=== PATIENT | female | born 1980 | race Two or more races ===

== ENCOUNTER 2025-01-11 19:27 | Emergency (ER) | payer OTHER, SELFPAY ==
[2025-01-11 19:57] VITALS: BP 148/93; PULSE 74; RESP 18; TEMP 37.1; O2SAT 97
--- NOTE | 2025-01-11 20:09 | XR_ITS ---
Examination: CT abdomen and pelvis without contrast. Coronal 3-D reconstructions. Sagittal 2-D reconstructions. Date and time of exam:January 11, 2025 at 2055 hours INDICATIONS: Right-sided abdominal pain radiating to the back with nausea beginning 2 weeks ago CTDI: vol (mGy): 16 DLP: (mGycm): 923 Technique: Axial images of the abdomen have been obtained, 3 mm slice thickness Intravenous contrast material has not been administered. Low dose protocols were performed. One or more of the following dose reduction techniques were used; automated exposure control, adjustment of the mA and/or KV according to patient size, use of iterative reconstruction technique. Findings: No focal liver or splenic lesions No gallstones No pancreatic mass No renal or ureteral calculi, no hydronephrosis Aorta normal size Normal appendix 12 mm fat-containing umbilical hernia No bowel obstruction No diverticulitis Contracted urinary bladder Moderate degenerative disc disease L5-S1 IMPRESSION: No renal or ureteral calculi, no hydronephrosis Normal appendix No bladder mass or bladder calculi Moderate degenerative disc disease L5-S1
--- NOTE | 2025-01-11 20:10 | EKG_ITS ---
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
--- NOTE | 2025-01-11 20:10 | XR_ITS ---
Examination: PA lateral chest 2 views TECHNIQUE: Upright PA and lateral chest 2 views Exam time: 2024 at 2002 hours Comparison June 15, 2024 INDICATIONS: Chest pain. FINDINGS: Minimal opacity in the lingular segment on the lateral view Right lung clear Normal heart size IMPRESSION: Suspicious for minimal pneumonia lingular segment left upper lobe
--- NOTE | 2025-01-11 20:11 | EDNOTE_ITS ---
ED Abdominal Pain RME/HPI General Chief Complaint: Abdominal Pain Stated complaint: RIGHT ABD PAIN RADIATING TO BACK Time seen by provider: 01/11/25 19:29 Arrival date/time: 01/11/25 19:27 Limitations: no limitations RME / HPI RME / HPI narrative: 44-year-old patient with past medical history of hypertension and fibromyalgia presents for evaluation of X 2 weeks of right upper quadrant pain with radiation to her back. She describes it as aching that is worse with eating. She reports new onset of pain radiating to her bilateral low back. Denies fever, chills, chest pain, shortness of breath, cough, diarrhea, hemoptysis, hematochezia, hematemesis. She notes right knee pain following a fall from standing several days ago. Denies known history of kidney stones. MD complaint: abdominal pain Location: RUQ Quality: aching Radiation: bilateral flank Exacerbating factors: eating Related Data Home Medications ?Medication ?Instructions ?Recorded ?Confirmed losartan 50 mg tablet 50 mg PO BID High Blood Pres sure 07/28/21 07/28/21 Previous Rx's ?Medication ?Instructions ?Recorded albuterol sulfate 90 mcg/actuation 1 inh inhalation QI D PRN shortness 07/31/21 aerosol inhaler (Proventil HFA) of breath or wheezing #6.7 grams fluticasone propionate 115 2 puff inhalation BID #8 gr ams 07/31/21 mcg-salmeterol 21 mcg/actuation HFA inhaler (Advair HFA) metformin 1,000 mg tablet 1,000 mg PO BID #60 tabs 09/10 ferrous sulfate 325 mg (65 mg 325 mg PO TID #90 tabs 1 11/06/22 iron) tablet,delayed release gabapentin 100 mg capsule 100 mg PO TID #42 caps 09/06 (Neurontin) meclizine 25 mg chewable tablet 25 mg PO TID nausea #1 4 tabs 09/06/23 ondansetron 4 mg disintegrating 4 mg PO Q8H PRN nausea and 01/11/25 tablet vomiting #14 tabs Allergies Allergy/AdvReac Type Severity Reaction Status Date / Time No Known Allergies Allergy Verified 01/11/25 19:28 Review of Systems Constitutional Constitutional: Denies excessive sweating, Denies fever(s), Denies night sweats and Denies weakness Cardiovascular Cardiovascular: Denies chest pain, Denies dyspnea and Denies palpitations Respiratory Respiratory: Denies cough, Denies dyspnea and Denies hemoptysis Gastrointestinal Gastrointestinal: Reports abdominal pain, Denies bloating, Denies change in bowel habits, Denies change in stool character, Denies constipation, Reports dyspepsia, Denies hematemesis, Denies hematochezia and Denies vomiting Genitourinary Genitourinary: Denies dysuria and Denies hematuria Musculoskeletal Musculoskeletal: Reports back pain, Denies numbness, Denies stiffness and Denies tingling Integumentary/Breasts Skin/Breast: Denies rash Neurologic Neurologic: Denies numbness, Denies tingling and Denies weakness Endocrine Endocrine: Denies excessive sweating and Denies palpitations Past Medical History Past Medical History CARDIAC: Negative Congestive Heart Failure RESPIRATORY: Negative Chronic Obstructive Pulmonary Disease (COPD) GENITOURINARY: Negative Renal Disease ENDOCRINE: Negative Diabetes Mellitus Type 1 or Diabetes Mellitus Type 2 Family History FAMILY HISTORY: Positive Family Respiratory Disorders and Family Gastrointestinal Problems; Negative Family Cardiac Disorders Social History SMOKING STATUS: Never smoker ED Exam General Limitations: Present no limitations General appearance: Present alert and in no apparent distress Head Head exam: Present atraumatic and normocephalic Eye Eye exam: Present normal appearance and EOMI ENT ENT exam: Present normal exam and normal oropharynx Neck Neck exam: Present normal inspection and full ROM Chest Chest inspection: Present normal inspection and symmetric chest wall rise; Absent tenderness Respiratory Respiratory exam: Present normal lung sounds bilaterally; Absent respiratory distress or wheezes Cardiovascular Cardiovascular exam: Present regular rate, normal heart sounds and +S1 Abdominal Exam Abdominal exam: Present soft and normal bowel sounds; Absent distention, tenderness, guarding, rebound or rigidity Bimanual exam: Present left adnexal tenderness Extremities Exam Extremities exam: Present normal inspection and full ROM Back Exam Back exam: Present normal inspection; Absent CVA tenderness (R) or CVA tenderness (L) Neurological Exam Neurological exam: Present alert and normal gait Psychiatric Psychiatric exam: Present normal affect Skin Skin exam: Present warm, dry and normal color Course Quality Measures none Orders Category Date Time Status EKG (ED ONLY) *Do not use* NOW Care 01/11/25 20:[address] abdomen pelvis wo con Stat Exams 01/11/25 20:09 Completed EKG (ED Only) Stat Exams 01/11/25 20:10 Draft XR chest 2V Stat Exams 01/11/25 20:10 Completed XR knee LT 3V Stat Exams 01/11/25 21:05 Completed CBC Stat Lab 01/11/25 20:26 Completed Comprehensive Metabolic Panel Stat Lab 01/11/25 20:26 Completed Drug Screen,Urine Stat Lab 01/11/25 21:17 Completed LDH (Lactate Dehydrogenase) Stat Lab 01/11/25 20:26 Completed Lipase Stat Lab 01/11/25 20:26 Completed Magnesium Stat Lab 01/11/25 20:26 Completed Partial Thromboplastin Time Stat Lab 01/11/25 20:26 Completed Prothrombin Time with INR Stat Lab 01/11/25 20:26 Completed Troponin I Stat Lab 01/11/25 20:26 Completed Urinalysis Stat Lab 01/11/25 21:17 Completed Famotidine [Pepcid] Med 01/11/25 20:09 Discontinued 40 mg PO X1 ONE Lidocaine 2% Viscous [Xylocaine 2% Viscous] Med 01/11/25 20:09 Discontinued 15 ml PO X1 ONE mg Hyd/Al Hyd/Alba Susp [Maalox Susp] Med 01/11/25 20:09 Discontinued 30 ml PO X1 ONE Vital Signs Vital signs: Vital Signs Temperature 98.8 F 01/11/25 19:57 Pulse Rate 74 01/11/25 19:57 Respiratory Rate 18 01/11/25 19:57 Blood Pressure 148/93 H 01/11/25 19:57 Pulse Oximetry (%) 97 01/11/25 19:57 Oxygen Delivery Method Room Air 01/11/25 19:57 Pulse ox 97% on room air, within normal limits. Abdominal Pain MDM MDM Narrative [facility] Narrative:: 44-year-old female presented with x 2 weeks of right upper quadrant pain that radiated to her back. Vital signs reassuring. Unremarkable physical exam. Given worsening of her symptoms CT abdomen and pelvis was obtained which was fortunately negative for acute intra-abdominal process. Labs point away from acute pancreatitis and sepsis. UA was significant for crystals in her urine but no sign of infection. Possibly abdominal pain related to GERD as her symptoms improved in department following GI cocktail. Ultimately patient was discharged with plan to follow-up with primary care within the week for reevaluation and further assessment. Patient stable at time of discharge. Patient data External records reviewed:: [facility] previous records Clinical information provided by:: patient Social determinants that could affect healthcare access:: none Patient has the following chronic illnesses:: None reported. How is presenting disease/condition affected by chronic disease/condition?: no chronic disease Evaluation data The following diagnostics were reviewed and interpreted by me:: lab results, radiology exam(s) and EKG tracing(s) Lab and/or radiology exams considered but not ordered:: Considered not ordered. Interpretation Summary: MPRESSION: No renal or ureteral calculi, no hydronephrosis Normal appendix No bladder mass or bladder calculi Moderate degenerative disc disease L5-S1 CBC significant for mild anemia not requiring transfusion at this time. No evidence of endorgan damage or failure. Crystals seen in urine but no sign of infection. Medications / Prescriptions Medications or Prescriptions considered but not ordered:: Rx given. Medication administrations:: Medication Administration History Discontinued Medications Al Hydrox/Mg Hydrox/Simethicone (Mg Hyd/Al Hyd/Alba (Maalox Reg) Susp 30 Ml Udc) 30 ml PO X1 ONE Stop: 01/11/25 20:10 Last Admin: 01/11/25 20:15 Dose: 30 ml Documented By: AC Famotidine (Famotidine 20 Mg Tablet) 40 mg PO X1 ONE Stop: 01/11/25 20:10 Last Admin: 01/11/25 20:15 Dose: 40 mg Documented By: AC Lidocaine HCl (Lidocaine Viscous 2% 15 Ml Udc) 15 ml PO X1 ONE Stop: 01/11/25 20:10 Last Admin: 01/11/25 20:15 Dose: 15 ml Documented By: AC Rx given. Consultations Consultation(s) initiated? (list below): No Diagnosis Differential diagnosis abdominal pain: abdominal pain, calculus of kidney, gastroenteritis, pancreatitis and other (Left knee dislocation, left knee strain, GERD.) Most likely diagnosis given after review of the tests above:: Abdominal pain, urinary crystals, bilateral flank pain. Admission Indicated Admission indicated?: not indicated Admission Request Was there a request for admission?: No Disposition Plan Disposition Plan: Discharge Discharge Attestation Discharge Attestation: The patient and all family members were given an opportunity to ask questions and understood the discharge instructions. Discharge instructions specifically effects, indications for sooner follow up or return to the emergency department, and the expected course of current diagnosis. Patient condition: Stable Discharge Plan Plan Patient Disposition: HOME (Self Care) Disposition Comment: stable Prescriptions/Referrals Prescriptions/Med Rec: New ondansetron 4 mg tablet,disintegrating 4 mg PO Q8H PRN (Reason: nausea and vomiting) Qty: 14 0RF No Action losartan 50 mg tablet 50 mg PO BID albuterol sulfate [Proventil HFA] 90 mcg/actuation HFA aerosol inhaler 1 inh inhalation QID PRN (Reason: shortness of breath or wheezing) Qty: 6.7 0RF Advair HFA 115-21 mcg/actuation HFA aerosol inhaler 2 puff inhalation BID Qty: 8 0RF metformin 1,000 mg tablet 1,000 mg PO BID Qty: 60 0RF meclizine 25 mg tablet,chewable 25 mg PO TID Qty: 14 0RF gabapentin [Neurontin] 100 mg capsule 100 mg PO TID Qty: 42 0RF ferrous sulfate 325 mg (65 mg iron) tablet,delayed release (DR/EC) 325 mg PO TID Qty: 90 0RF Rx Instructions: Take with 500mg Vitamin C 30 minutes before meals Referrals: No Primary/Family,Physician [Primary Care Provider] - In 1 week Problem List Clinical Impression: Acute pain of right knee, Abdominal pain, Urinary crystals, Anemia, Flank pain Patient/Caregiver Discharge Instructions Other Activity Instructions:: Take Zofran as needed for nausea. Continue to treat pain with Tylenol or Motrin as needed every 6 hours. Use Alec bandage on right knee for the next 3 days. Follow-up with primary care for further evaluation and treatment. Return to the ED if your symptoms worsen or change. Education Materials: Abdominal Pain, Anemia, ED ALEC Wrap, ED Contusion, Lower Extremity, ED Flank Pain, Uncertain Cause Print Language: Japanese Stand Alone Forms: Elizabeth Award Info., Patient Portal Info Letter PA/VISCERA WASHER Supervising Physician PA/VISCERA WASHER Supervising Physician: Dr. Gaming
[2025-01-11] MEDS: FAMOTIDINE 20 MG TABLET 40 MG PO (20:15)
[2025-01-11] MEDS: MG HYD/AL HYD/SIME (Maalox Reg) SUSP 30 ML UDC PO (20:15)
[2025-01-11] MEDS: LIDOCAINE VISCOUS 2% 15 ML UDC PO (20:15)
[2025-01-11 20:50] LABS: Basophils # (Auto) 0.1 Thou/mm3 (0.0-0.2); Basophils % (Auto) 1 % (0-2.5); Eosinophils # (Auto) 0.2 Thou/mm3 (0.0-0.5); Eosinophils % (Auto) 2 % (0-10); Hematocrit 37.6 % (36.0-46.0); Hemoglobin 11.4 g/dL (12.0-16.0); Immature Granulocytes % (Auto) 0 % (0-0); Immature Granulocytes Auto 0.02 Thou/mm3 (0.00-0.00); Lymphocytes # (Auto) 2.5 Thou/mm3 (1.0-4.8); Lymphocytes % (Auto) 37 % (10-50); Mean Corpuscular HGB Conc 30.3 g/dl (31.0-37.0); Mean Corpuscular Hemoglobin 21.8 pg (25.0-35.0); Mean Corpuscular Volume 72 fL (80-100); Monocytes # (Auto) 0.6 Thou/mm3 (0.0-0.8); Monocytes % (Auto) 8 % (0-12); Neutrophils # (Auto) 3.5 Thou/mm3 (1.8-7.7); Neutrophils % (Auto) 52 % (37-80); Nucleated Red Blood Cell % 0 /100 WBC (0); Platelet Count 358 Thou/mm3 (140-440); RDW Standard Deviation 50.4 fL (36.4-46.3); Red Blood Count 5.23 Miln/mm3 (4.00-5.20); White Blood Count 6.9 Thou/mm3 (3.6-11.0)
[2025-01-11 21:04] LABS: Partial Thromboplastin Time 28.2 Seconds (22.0-36.0); Prothrombin Time 10.9 Seconds (9.0-12.2)
--- NOTE | 2025-01-11 21:05 | XR_ITS ---
Examination: Knee, left , 3 views Technique: Knee AP, lateral, oblique 3 views Date and time of exam: January 11, 2025 at 2006 hours INDICATIONS: Patient fell last by with inferior the knee, knee pain. FINDINGS: Moderate to advanced osteoarthritis medial joint space No occult fracture or dislocation IMPRESSION: No ankle fracture or dislocation
[2025-01-11 21:13] LABS: Alanine Aminotransferase 22 U/L (10-49); Albumin, Serum 4.2 gm/dL (3.5-5.0); Albumin/Globulin Ratio 1.4 (1.2-2.2); Alkaline Phosphatase 131 U/L (46-116); Anion Gap 8 (7-16); Aspartate Amino Transferase 23 U/L (0-34); BUN/Creatinine Ratio 33 Ratio (12-20); Bilirubin,Total 0.5 mg/dL (0.3-1.2); Blood Urea Nitrogen 20 mg/dL (9-23); Calcium 9.9 mg/dL (8.3-10.6); Calcium (Corrected) 9.9 mg/dL (8.5-10.1); Carbon Dioxide 28.4 mMol/L (20.0-31.0); Chloride 106 mMol/L (98-107); Creatinine (Component) 0.6 mg/dL (0.6-1.3); Globulin 3.1 gm/dL (2.3-3.5); Glucose 103 mg/dL (74-106); Lipase 35 U/L (12-53); Osmolality,Calculated 285 (275-295); Potassium 3.8 mMol/L (3.4-5.1); Sodium 142 mMol/L (136-145); Total Protein 7.3 gm/dL (5.7-8.2); Troponin I < 0.020 ng/mL (0.0-0.045); eGFR > 60 See Note
[2025-01-11 21:49] LABS: Amphetamine/Methamp Scrn,U Negative (Negative); Barbiturate Screen,Urine Negative (Negative); Benzodiazepines Screen,Urine Negative (Negative); Benzoylecgonine Screen, Ur Negative (Negative); Fentanyl Screen,Urine Negative (Negative); Opiate Screen,Urine Negative (Negative); THC Screen,Urine Negative (Negative)
[2025-01-11 22:11] LABS: Bilirubin,Urine Negative (Negative); Blood,Urine Negative (Negative); Clarity,Urine Turbid (Clear/Hazy); Collection Type, Urine Clean Catch; Color,Urine Yellow (Lt Yel-Yel); Glucose, Urine Negative (Negative); Hyaline Casts,Urine 1 /hpf (0-1); Ketones,Urine Negative (Negative); Leukocyte Esterase,Urine Positive (Negative); Nitrite,Urine Negative (Negative); PH,Urine 5.5 (5.0-7.0); Protein,Urine Trace (Neg - Trace); RBC,Urine 1 /hpf (0-3); Squamous Epithelial Cell,Urine 10 /hpf (0-5); Uric Acid Crystals,Urine 4+; WBC,Urine 1 /hpf (0-5)
[2025-01-11 23:11] LABS: LDH (Lactate Dehydrogenase) 191 U/L (120-246); Magnesium 2.3 mg/dL (1.6-2.6)
== END 2025-01-11 23:35 | disposition home or self-care (01) ==
PROVIDERS: Physician Assistant; Emergency Provider Emergency Medicine
DX: M25.561 Pain in right knee (principal); R10.11 Right upper quadrant pain; D64.9 Anemia, unspecified; R82.998 Other abnormal findings in urine; M79.7 Fibromyalgia; I10 Essential (primary) hypertension
CPT/HCPCS: 36415; 71046; 73562; 74176; 80053; 80307; 81001; 83615; 83690; 83735; 84484; 85025; 85610; 85730; 93005; 99284; J3490; A9270

== ENCOUNTER 2025-06-03 19:35 | Emergency (ER) | payer OTHER, SELFPAY ==
--- NOTE | 2025-06-03 19:38 | EKG_ITS ---
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
[2025-06-03 19:47] VITALS: BP 153/99; PULSE 74; RESP 18; TEMP 37.1; O2SAT 97; BMI 34.9
--- NOTE | 2025-06-03 20:08 | PD.EDRME ---
Rapid Medical Screening Exam E Arrival date/time: 06/03/25 19:35 44F with history of HTN, DM and gastric bypass surgery presents to ED with 1 month of CP and SOB that is worse with movement. Both got worse in the last few days. Patient had XRs done today outpatient from PCP, who also gave her some GERD meds. Patient would also like to be tested for [place] Fever. Chief Complaint: Chest Pain Vital signs: Vital Signs Temperature 98.7 F 06/03/25 19:47 Pulse Rate 74 06/03/25 19:47 Respiratory Rate 18 06/03/25 19:47 Blood Pressure 153/99 H 06/03/25 19:47 Pulse Oximetry (%) 97 06/03/25 19:47 Oxygen Delivery Method Room Air 06/03/25 19:47
[2025-06-03 20:34] LABS: Basophils # (Auto) 0.0 Thou/mm3 (0.0-0.2); Basophils % (Auto) 1 % (0-2.5); Eosinophils # (Auto) 0.0 Thou/mm3 (0.0-0.5); Eosinophils % (Auto) 0 % (0-10); Hematocrit 36.7 % (36.0-46.0); Hemoglobin 11.4 g/dL (12.0-16.0); Immature Granulocytes Auto 0.06 Thou/mm3 (0.00-0.00); Lymphocytes # (Auto) 1.6 Thou/mm3 (1.0-4.8); Lymphocytes % (Auto) 20 % (10-50); Mean Corpuscular HGB Conc 31.1 g/dl (31.0-37.0); Mean Corpuscular Hemoglobin 23.5 pg (25.0-35.0); Mean Corpuscular Volume 76 fL (80-100); Monocytes # (Auto) 0.7 Thou/mm3 (0.0-0.8); Monocytes % (Auto) 9 % (0-12); Neutrophils # (Auto) 5.6 Thou/mm3 (1.8-7.7); Neutrophils % (Auto) 70 % (37-80); Nucleated Red Blood Cell # 0.00 Thou/mm3 (0.00-0.00); Nucleated Red Blood Cell % 0 /100 WBC (0); Platelet Count 339 Thou/mm3 (140-440); RDW Standard Deviation 45.1 fL (36.4-46.3); Red Blood Count 4.86 Miln/mm3 (4.00-5.20); White Blood Count 8.1 Thou/mm3 (3.6-11.0)
[2025-06-03 20:49] LABS: HCG Qualitative,Urine Negative
[2025-06-03 20:54] LABS: B-Type Natriuretic Peptide 53 pg/mL (0-100)
[2025-06-03 20:56] LABS: Alanine Aminotransferase 17 U/L (10-49); Albumin, Serum 4.2 gm/dL (3.5-5.0); Albumin/Globulin Ratio 1.5 (1.2-2.2); Alkaline Phosphatase 154 U/L (46-116); Anion Gap 10 (7-16); Aspartate Amino Transferase 22 U/L (0-34); BUN/Creatinine Ratio 30 Ratio (12-20); Bilirubin,Total 0.4 mg/dL (0.3-1.2); Blood Urea Nitrogen 21 mg/dL (9-23); Calcium 9.1 mg/dL (8.3-10.6); Calcium (Corrected) 9.1 mg/dL (8.5-10.1); Carbon Dioxide 24.7 mMol/L (20.0-31.0); Chloride 108 mMol/L (98-107); Creatinine (Component) 0.7 mg/dL (0.6-1.3); Estimated Creatinine Clearance 124.1 mL/min (>60); Globulin 2.8 gm/dL (2.3-3.5); Glucose 116 mg/dL (74-106); Osmolality,Calculated 288 (275-295); Potassium 3.7 mMol/L (3.4-5.1); Sodium 143 mMol/L (136-145); Total Protein 7.0 gm/dL (5.7-8.2); Troponin I < 0.020 ng/mL (0.0-0.045); eGFR > 60 See Note
[2025-06-03 20:58] LABS: Amphetamine/Methamp Scrn,U Negative (Negative); Barbiturate Screen,Urine Negative (Negative); Benzodiazepines Screen,Urine Negative (Negative); Benzoylecgonine Screen, Ur Negative (Negative); Fentanyl Screen,Urine Negative (Negative); Opiate Screen,Urine Negative (Negative); THC Screen,Urine Negative (Negative)
[2025-06-03 22:43] VITALS: BP 146/95; PULSE 63; RESP 18; TEMP 36.8; O2SAT 99
--- NOTE | 2025-06-03 23:49 | PD.EDCHEST ---
ED Chest Pain RME/HPI General Chief Complaint: Chest Pain Stated Complaint: SOB/ pain radiates sternum to right side of chest Arrival date/time: 06/03/25 19:35 RME / HPI RME / HPI narrative: 06/03/25 19:35 44F with history of HTN, DM and gastric bypass surgery presents to ED with 1 month of CP and SOB that is worse with movement. Both got worse in the last few days. Patient had XRs done today outpatient from PCP, who also gave her some GERD meds. Patient would also like to be tested for Valley Fever. DR. XIE MAIN ED EVALUATION: 44 y/o female with Hx of Type II DM, HTN, and SHx of Gastric Bypass presents to ED c/o medial anterior chest pain that radiates to the right x 2 weeks. Patient also reports a dry cough x 1 day. She states that construction has been ongoing near her home and is concerned for [place] fever. PCP believes she may have GERD. No other concerns or complaints expressed at this time. Related Data Home Medications ?Medication ?Instructions ?Recorded ?Confirmed losartan 50 mg tablet 50 mg PO BID High Blood Pressure 07/28/21 07/28/21 Previous Rx's ?Medication ?Instructions ?Recorded albuterol sulfate 90 mcg/actuation 1 inh inhalation QID PRN shortness 07/31/21 aerosol inhaler (Proventil HFA) of breath or wheezing #6.7 grams fluticasone propionate 115 2 puff inhalation BID #8 grams 07/31/21 mcg-salmeterol 21 mcg/actuation HFA inhaler (Advair HFA) metformin 1,000 mg tablet 1,000 mg PO BID #60 tabs 07/31/21 ferrous sulfate 325 mg (65 mg 325 mg PO TID #90 tabs 09/06/23 iron) tablet,delayed release gabapentin 100 mg capsule 100 mg PO TID #42 caps 09/06/23 (Neurontin) meclizine 25 mg chewable tablet 25 mg PO TID nausea #14 tabs 09/06/23 ondansetron 4 mg disintegrating 4 mg PO Q8H PRN nausea and 01/11/25 tablet vomiting #14 tabs Allergies Allergy/AdvReac Type Severity Reaction Status Date / Time No Known Allergies Allergy Verified 01/11/25 19:28 Review of Systems Review of Systems Systems Reviewed: All systems reviewed, normal except as documented Past Medical History Past Medical History CARDIAC: Positive Hypertension ENDOCRINE: Positive Diabetes Mellitus Type 2 Family History FAMILY HISTORY: Positive Family Respiratory Disorders and Family Gastrointestinal Problems ED Exam Narrative Physical exam: Generally patient is alert and in no obvious distress, heart is regular rate and rhythm, lungs clear to auscultation equal bilaterally, chest shows reproducible tenderness to palpation of the right upper chest wall, abdomen soft bowel sounds present nondistended nontender, extremities show no edema, neurologic exam no focal motor or sensory deficits cranial nerves II through XII grossly intact Course Quality Measures none Orders Category Date Time Status EKG (ED ONLY) *Do not use* NOW Care 06/03/25 19:38 Completed EKG (ED Only) Stat Exams 06/03/25 19:38 Draft B-Type Natriuretic Peptide Stat Lab 06/03/25 20:19 Completed CBC Stat Lab 06/03/25 20:19 Completed Cocci Serology IgM with reflex to IgG [Cocci Serology, Lab 06/03/25 20:19 Received Unk History] Stat Comprehensive Metabolic Panel Stat Lab 06/03/25 20:19 Completed Drug Screen,Urine Stat Lab 06/03/25 20:35 Completed HCG Qualitative,Urine Stat Lab 06/03/25 20:35 Completed Troponin I Stat Lab 06/03/25 20:19 Completed Vital Signs Vital signs: Vital Signs Temperature 98.7 F 06/03/25 19:47 Pulse Rate 74 06/03/25 19:47 Respiratory Rate 18 06/03/25 19:47 Blood Pressure 153/99 H 06/03/25 19:47 Pulse Oximetry (%) 97 06/03/25 19:47 Oxygen Delivery Method Room Air 06/03/25 19:47 Chest Pain MDM Narrative MDM Narrative:: Scribe Attestation: I, Regina oPrter, am scribing for and in the presence of Dr. Xie. Provider Notation: Although this document has been carefully reviewed, there may still be some phonetic and other typographical errors.? These errors are purely grammatical due to imperfections in the software program and should not be construed in any way to? compromise the substance of the patient's medical care during this visit. Pain has been going on for 2 weeks and is worse with movement and palpation to right upper chest wall. Troponin is not elevated. EKG is nonischemic. Chest x-ray is normal. Coccidiomycosis testing is pending. Patient will be discharged in stable condition. Patient does have appropriate follow-up. Heart score is 2. Patient data External records reviewed:: [facility] previous records (Reviewed prior ED records from 01/11/25. Patient was seen for Abdominal pain.) Clinical information provided by:: patient Social determinants that could affect healthcare access:: none Patient has the following chronic illnesses:: Type II DM, HTN How is presenting disease/condition affected by chronic disease/condition?: exacerbated by Evaluation data The following diagnostics were reviewed and interpreted by me:: lab results and EKG tracing(s) Lab and/or radiology exams considered but not ordered:: None Interpretation Summary: See MDM above. Medications / Prescriptions Medications or Prescriptions considered but not ordered:: None Medication administrations:: See above Consultations Consultation(s) initiated? (list below): No Diagnosis Chest Pain Differential Diagnosis: stable angina, unstable angina pectoris, atypical chest pain, st elevation myocardial infarction, costochondritis, chest pain and biliary colic Most likely diagnosis given after review of the tests above:: None Admission Indicated Admission indicated?: not indicated Explain why admission is indicated or not indicated:: Patient does not meet admission criteria. Admission Request Was there a request for admission?: No Disposition Plan Disposition Plan: Discharge Discharge Attestation Discharge Attestation: The patient and all family members were given an opportunity to ask questions and understood the discharge instructions. Discharge instructions specifically effects, indications for sooner follow up or return to the emergency department, and the expected course of current diagnosis. Patient condition: Stable Discharge Plan Plan Patient Disposition: HOME (Self Care) Prescriptions/Referrals Prescriptions/Med Rec: No Action losartan 50 mg tablet 50 mg PO BID albuterol sulfate [Proventil HFA] 90 mcg/actuation HFA aerosol inhaler 1 inh inhalation QID PRN (Reason: shortness of breath or wheezing) Qty: 6.7 0RF Advair HFA 115-21 mcg/actuation HFA aerosol inhaler 2 puff inhalation BID Qty: 8 0RF metformin 1,000 mg tablet 1,000 mg PO BID Qty: 60 0RF meclizine 25 mg tablet,chewable 25 mg PO TID Qty: 14 0RF gabapentin [Neurontin] 100 mg capsule 100 mg PO TID Qty: 42 0RF ferrous sulfate 325 mg (65 mg iron) tablet,delayed release (DR/EC) 325 mg PO TID Qty: 90 0RF Rx Instructions: Take with 500mg Vitamin C 30 minutes before meals ondansetron 4 mg tablet,disintegrating 4 mg PO Q8H PRN (Reason: nausea and vomiting) Qty: 14 0RF Referrals: No Primary/Family,Physician [Primary Care Provider] - In 1 week Problem List Clinical Impression: Chest pain Patient/Caregiver Discharge Instructions Education Materials: ED Chest Pain, Noncardiac Additional Instructions: You may take Tylenol and/or ibuprofen as needed for pain. Follow-up with your doctor as needed. Return to ER as needed or if condition worsens. Print Language: Uzbek Stand Alone Forms: Elizabeth Award Info., Patient Portal Info Letter
[2025-06-04 15:10] LABS: Cocci Serology, IgM Negative (Negative)
[2025-06-05 15:08] LABS: Cocci Serology, IgG Negative (Negative)
== END 2025-06-04 00:06 | disposition home or self-care (01) ==
PROVIDERS: Physician Assistant; Emergency Provider Emergency Medicine
DX: R07.9 Chest pain, unspecified (principal); R06.02 Shortness of breath; K21.9 Gastro-esophageal reflux disease without esophagitis; I10 Essential (primary) hypertension; E11.9 Type 2 diabetes mellitus without complications
CPT/HCPCS: 36415; 80053; 80307; 81025; 83880; 84484; 85025; 86331; 86635; 93005; 99283

== ENCOUNTER → 2025-06-03 | Outpatient (CLI) | payer OTHER, SELFPAY ==
--- NOTE | 2025-06-03 16:45 | XR_ITS ---
Examination: PA lateral chest 2 views TECHNIQUE: Upright PA and lateral chest 2 views Date and time: June 03, 2025 1659 hours INDICATIONS: Chest pain this month. FINDINGS: Normal heart size No pneumonia or pulmonary edema. The osseous structures are intact. IMPRESSION: No active disease.
--- NOTE | 2025-06-03 16:45 | XR_ITS ---
Examination: Shoulder bilateral, 6 views Technique: Shoulder AP internal rotation, AP external rotation, Y view each shoulder total 6 views. Exam date and time :June 03, 2025, 1654 hours. INDICATIONS: Bilateral shoulder pain several years getting worse FINDINGS: Moderate osteopenia. Bilateral mild narrowing glenohumeral joints No shoulder fractures or dislocations No calcific tendinitis IMPRESSION: Bilateral mild narrowing glenohumeral joints.
== END | disposition home or self-care (01) ==
PROVIDERS: PCP Nurse Practitioner Family; Referring Provider Nurse Practitioner Family; Visit Provider Nurse Practitioner Family
DX: R06.02 Shortness of breath (principal); M25.812 Other specified joint disorders, left shoulder; M25.811 Other specified joint disorders, right shoulder; Z20.89 Contact with and (suspected) exposure to other communicable diseases
CPT/HCPCS: 71046; 73030